=== PATIENT | male | born 1995 | race Caucasian/White ===

== ENCOUNTER 2018-03-16 10:36 | Emergency (ER) | payer BC, MEDICAID ==
[2018-03-16 10:46] VITALS: BP 124/72; PULSE 51; TEMP 98; O2SAT 100
[2018-03-16 10:47] VITALS: BMI 33.7
--- NOTE | 2018-03-16 12:35 | ED PDOC ---
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 Pt also states that he is looking for a two month prescription for Xanax for his upcoming trip to [place]. I informed him that the ED was not an appropriate place to refill a script for that length of time. While awaiting evaluation and treatement for the backpain, the patient indicatged that he wanted to leave Past Medical History Reviewed: Historical Data, Nursing Documentation, Vital Signs Vital Signs: Last Vital Signs Temp 98 F 03/16/18 10:46 Pulse 51 L 03/16/18 10:46 Resp BP 124/72 03/16/18 10:46 Pulse Ox 100 03/16/18 10:46 - Medical History PMH: Anxiety, Bipolar Disorder, Depression - Family History Family History: States: Unknown Family Hx - Immunization History Hx Tetanus Toxoid Vaccination: No Hx Influenza Vaccination: No Hx Pneumococcal Vaccination: No - Allergies Allergies/Adverse Reactions: Allergies Allergy/AdvReac Type Severity Reaction Status Date / Time No Known Allergies Allergy Verified 03/16/18 11:00 Review of Systems ROS Statement: Except As Marked, All Systems Reviewed And Found Negative Musculoskeletal: Positive for: Back Pain Physical Exam - Reviewed Nursing Documentation Reviewed: Yes Vital Signs Reviewed: Yes - Physical Exam Appears: Positive for: Well, Non-toxic, No Acute Distress. Negative for: Uncomfortable Head Exam: Positive for: ATRAUMATIC, NORMAL INSPECTION, NORMOCEPHALIC Skin: Positive for: Normal Color, Warm, Dry Neck: Positive for: Normal, Painless ROM, Supple. Negative for: Decreased ROM Cardiovascular/Chest: Positive for: Regular Rate, Rhythm. Negative for: Chest Non Tender, Edema, Gallop, Murmur, Bradycardia, Tachycardia Respiratory: Positive for: Normal Breath Sounds. Negative for: Decreased Breath Sounds, Accessory Muscle Use, Crackles, Rales, Rhonchi Pulses-Carotid (L): 2+ Pulses-Carotid (R): 2+ Pulses-Radial (L): 2+ Pulses-Radial (R): 2+ Back: Positive for: Normal Inspection. Negative for: L CVA Tenderness, R CVA Tenderness, Vertebral Tenderness, Decreased ROM, Muscle Spasm - ECG O2 Sat by Pulse Oximetry: 100 Medical Decision Making Medical Decision Making: Tx includes toradol and apap Pt indicated he wished to sign out AMA after refusal to write two month refill for xanax Disposition - Clinical Impression Clinical Impression: Back pain - Disposition Referrals: Boo Wayne MD [Primary Care Provider] - Disposition: Against Medical Advice Disposition Time: 13:29 Condition: GOOD Instructions: Upper Back Pain, Upper Back Pain (DC) Forms: [facility] (Lao)
== END 2018-03-16 12:49 | disposition left against medical advice (07) ==
LOC: H.ER 10:36 → SUPCPDRO 10:36 → H.ER 12:49
DX: M54.9 Dorsalgia, unspecified (principal); Z76.0 Encounter for issue of repeat prescription; Z86.59 Personal history of other mental and behavioral disorders
CPT/HCPCS: 96372; 99283; J1885

== ENCOUNTER 2018-10-14 15:27 | Emergency (ER) | payer MEDICAID ==
[2018-10-14 15:27] VITALS: BMI 33.7
[2018-10-14 17:10] LABS: BARBITURATES, UR NEGATIVE (NEGATIVE); BENZODIAZEPINES, UR POSITIVE (NEGATIVE); OPIATES, UR NEGATIVE (NEGATIVE); PHENCYCLIDINE, UR NEGATIVE (NEGATIVE)
--- NOTE | 2018-10-14 18:38 | ED PDOC ---
HPI: Psych/Substance Abuse Time Seen by Provider: 10/14/18 16:02 Chief Complaint (Nursing): Anxiety Chief Complaint (Provider): anxiety History Per: Patient History/Exam Limitations: no limitations Onset/Duration Of Symptoms: Days (one week), Intermittent Episodes Current Symptoms Are (Timing): Still Present Suicide/Self Injury Attempted (Context): None Modifying Factor(s): Marijuana, Other (xanax) Severity: Moderate Associated Symptoms: Anxiety, Depression. denies: Paranoia, Suicidal Thoughts, Suicidal Plan Additional Complaint(s): 23yo male hx anxiety prior on xanax and zoloft in past, now presents from work with anxiety after disagreement with boss. States he thought "for a minute" about "ending it all" but admits that was an overreaction and he denies suicidal thoughts prior or since. States "I want to grow and live". Denies alcohol abuse, admits to frequent THC and xanax use. Past Medical History Reviewed: Historical Data, Nursing Documentation, Vital Signs Vital Signs: Last Vital Signs Temp 98 F 10/14/18 15:32 Pulse 56 L 10/14/18 15:32 Resp 18 10/14/18 15:32 BP 116/80 10/14/18 15:32 Pulse Ox 100 10/14/18 15:32 - Medical History PMH: Anxiety, Bipolar Disorder, Depression Denies: Chronic Kidney Disease - Family History Family History: States: Unknown Family Hx - Immunization History Hx Tetanus Toxoid Vaccination: No Hx Influenza Vaccination: No Hx Pneumococcal Vaccination: No - Allergies Allergies/Adverse Reactions: Allergies Allergy/AdvReac Type Severity Reaction Status Date / Time No Known Allergies Allergy Verified 10/14/18 15:32 Review of Systems Constitutional: Negative for: Fever Cardiovascular: Negative for: Chest Pain, Palpitations Respiratory: Negative for: Shortness of Breath Gastrointestinal: Negative for: Nausea, Abdominal Pain Genitourinary Male: Negative for: Dysuria Musculoskeletal: Negative for: Neck Pain Skin: Negative for: Rash, Lesions, Jaundice Neurological: Negative for: Weakness, Numbness, Dizziness Psych: Positive for: Anxiety, Depression. Negative for: Psychosis, Suicidal ideation, Withdrawal Physical Exam - Reviewed Nursing Documentation Reviewed: Yes Vital Signs Reviewed: Yes - Physical Exam Appears: Positive for: Non-toxic (anxious), No Acute Distress Head Exam: Positive for: ATRAUMATIC, NORMAL INSPECTION, NORMOCEPHALIC Skin: Positive for: Normal Color, Warm, DRY Eye Exam: Positive for: EOMI, Normal appearance, PERRL ENT: Positive for: Normal ENT Inspection Neck: Positive for: Normal, Painless ROM Cardiovascular/Chest: Positive for: Regular Rate, Rhythm Respiratory: Positive for: CNT, Normal Breath Sounds Gastrointestinal/Abdominal: Positive for: Normal Exam, Soft Neurologic/Psych: Positive for: Alert, Oriented, Mood/Affect (fair insight, cooperative, nonpressured speech). Negative for: Motor/Sensory Deficits, Facial Droop - ECG O2 Sat by Pulse Oximetry: 100 Medical Decision Making Medical Decision Making: crisis eval per Dr Alvarez stable for DC home followup [facility] and [facility]. Patient improved in ED after one low dose anxiolytic. Disposition - Clinical Impression Clinical Impression: Anxiety - Patient ED Disposition Is Patient to be Admitted: No Counseled Patient/Family Regarding: Studies Performed, Diagnosis, Need For Followup - Disposition Referrals: [facility] [Outside] Disposition: Routine/Home Disposition Time: 18:40 Condition: STABLE Additional Instructions: Followup with outpatient mental health clinic and [facility]. Return to ER for any worse or new symptoms. Instructions: Anxiety, Adult (DC) Forms: [facility] (Tajik)
[2018-10-14 18:58] VITALS: BP 129/66; PULSE 65; RESP 20; TEMP 97.7; O2SAT 99
== END 2018-10-14 18:51 | disposition home or self-care (01) ==
LOC: H.ER 15:27
DX: F41.9 Anxiety disorder, unspecified (principal); F31.9 Bipolar disorder, unspecified